=== PATIENT | male | born 1940 | race Caucasian/White ===

== ENCOUNTER → 2020-10-13 | Outpatient (CLI) | payer OTHER ==
[~2020-10-13] MED LIST: GLUCOPHAGE1000 MG PO; NEURONTIN 300300 MG PO; TRESIBA FL100 UNIT/1 SQ; ZANAFLEX4 MG PO
== END ==
LOC: EXRD 10-10 09:45
DX: E11.51 Type 2 diabetes mellitus with diabetic peripheral angiopathy without gangrene (principal); M79.604 Pain in right leg; M79.605 Pain in left leg
CPT/HCPCS: 93925